=== PATIENT | female | born 1975 | race African-American/Black ===

== ENCOUNTER → 2017-01-13 | Outpatient (CLI) | payer BC ==
--- NOTE | 2017-01-13 13:50 | KCIC ---
Bilateral digital screening mammograms with CAD: HISTORY Routine screening COMPARISON Baseline exam. FINDINGS Breast density category C. The skin and nipples show no abnormalities. No abnormal lymph nodes are seen in the axilla. The breast parenchyma shows heterogeneous density. There is a nodular lesion in the lower inner quadrant of the right breast posteriorly which appears lobulated but fairly well-circumscribed and measures 2.6 centimeters in greatest dimension. This may represent a fibroadenoma. There is also a small nodule located inferiorly in the right breast on the obliques view possibly at the 5 o'clock position. In the left breast, there is a circumscribed nodule present anterior medially probably around the 10 o'clock position superficially. This measures 1.5 centimeters in greatest dimension. Further evaluation with bilateral ultrasound is recommended. There are no other dominant masses, suspicious calcifications or architectural distortions. IMPRESSION Bilateral breast nodules in the lower inner quadrant of the right breast and anteriorly in the medial left breast. Ultrasound followup is recommended. This study was interpreted with the benefit of Computerized Aided Detection (CAD). Mammography is not 100% sensitive in detecting breast cancer. Therefore, a self breast exam and a clinical breast exam are very important. A negative mammogram does not negate a clinically suspicious finding and should not result in a delay in biopsying a clinically suspicious abnormality. BI-RADS category 0: Incomplete. Ultrasound followup is recommended. This patient's information has been entered into a reminder system for the patient to be notified with the results of this examination and a target date for her next mammograms. Electronically signed by: Gema Chiu MD (Jan 13, 2017 13:48:32)
== END | disposition home or self-care (01) ==
LOC: KCIC MAMMO 07:57
PROVIDERS: ATTEND Obstetrics & Gynecology
DX: Z12.31 Encounter for screening mammogram for malignant neoplasm of breast (principal)
CPT/HCPCS: G0202; 77067

== ENCOUNTER → 2017-01-19 | Outpatient (CLI) | payer BC ==
--- NOTE | 2017-01-19 15:48 | KCIC ---
Bilateral breast ultrasound: Reason for examination: Nodular densities on screening mammogram. Comparison is made to mammographic examination dated 01/13/2017. Ultrasound examination was performed bilaterally with attention to the areas of mammographic concern. In the right breast, there is a partially septated 1.6 x 1.1 centimeter lesion consistent with a fibroadenoma and corresponding to the lesion seen mammographically. No other discrete cystic or solid lesions are seen. No abnormal lymph nodes are seen in the right axilla. The left breast shows a hypoechoic circumscribed lesion measuring 1.5 x 0.8 centimeters in greatest dimensions and 9 in parallel orientation also consistent with a small fibroadenoma. No other cystic or solid lesions are seen. No abnormal lymph nodes are seen in the left axilla. Impression: Benign appearing nodules seen bilaterally which probably represent fibroadenoma. Recommend 6 month followup with mammograms and ultrasound. BI-RADS category 3: Probably benign. This patient's information has been entered into a reminder system for the patient to be notified with the results of this examination and a target date for her next mammograms. Electronically signed by: Gema Chiu MD (Jan 19, 2017 15:46:12)
== END | disposition home or self-care (01) ==
LOC: KCIC US 08:29
PROVIDERS: ATTEND Obstetrics & Gynecology
DX: N63 Unspecified lump in breast (principal)
CPT/HCPCS: 76641